=== PATIENT | male | born 1950 | race Caucasian/White ===

== ENCOUNTER 2017-06-28 02:05 | Emergency (ER) | payer OTHER, SELFPAY ==
--- NOTE | 2017-06-28 02:14 | EDM.PDOC ---
ED HPI GENERAL MEDICAL PROBLEM - General Chief Complaint: Chest Pain Stated Complaint: [facility] Time Seen by Provider: 06/28/17 02:07 Source of Information: Reports: Patient, EMS Notes Reviewed History Limitations: Reports: No Limitations - History of Present Illness INITIAL COMMENTS - FREE TEXT/NARRATIVE: 77-year-old male presents the ED by ambulance. He reports that about 11:00 last evening he developed central chest pain that is stayed constant for the last 2-1 /2 hours. He has a known history of coronary disease and does not doctor. He believes he had 2 stents placed about 5 years ago at [facility] in [place] in about 10 years ago had one stent placed for myocardial infarctions. He is still a smoker a pack per day. No angina by history. He had not yet gone to bed. States the pain is bad enough that it made him break out in a sweat. Paramedics administered nitroglycerin spray 2 as well as morphine 2 mg IV 2 which did bring the pain down from a 9 to a 5. 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 Pain does not radiate through to his back into his neck or shoulders or arms. Not currently taking any medications. Onset: Sudden Onset Date: 06/27/17 Onset Time: 23:00 Duration: Hour(s): Location: Reports: Chest Quality: Reports: Pressure, Other (Heaviness) Severity: Severe (Initially pain was 9 out of 10 associated with diaphoresis.) Improves with: Reports: Medication (Some improvement with morphine and nitroglycerin sprays.) Worsens with: Reports: None Context: Reports: Other (Name came on abruptly well seated.). Denies: Activity , Exercise, Lifting, Sick Contact, Trauma Associated Symptoms: Reports: Chest Pain, Cough (History of present illness), cough w sputum ( has a smoker's cough.), Shortness of Breath (Associated with the chest pain). 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 Denies: Fever, Chills, Malaise, Weakness, Fatigue, Decreased Appetite, Weight Loss HEENT: Reports: Glasses Respiratory: Reports: Shortness of Breath, Cough, Sputum (Smoker's cough. of brownish sputum production). Denies: Wheezing, Pleuritic Chest Pain (On exertion) Cardiovascular: Reports: Chest Pain, Blood Pressure Problem, Dyspnea on Exertion. Denies: Claudication (See history of present illness), Edema, Lightheadedness, Orthopnea Endocrine: Reports: No Symptoms GI/Abdominal: Reports: Other (Gets GERD periodically.). Denies: Anorexia, Constipation, Diarrhea, Decreased Appetite : Reports: Frequency, Other (Nocturia usually 3) Musculoskeletal: Reports: Back Pain, Joint Pain (Knees and hips shoulders at times.) Neurological: Reports: No Symptoms Psychiatric: Reports: No Symptoms Hematologic/Lymphatic: Reports: No Symptoms Immunologic: Reports: No Symptoms ED EXAM, GENERAL - Physical Exam Exam: See Below Exam Limited By: No Limitations General Appearance: Alert, WD/WN, Mild Distress, Other (Is quite cool and clammy.) Eye Exam: Bilateral Eye: Normal Inspection Throat/Mouth: Other Head: Atraumatic (Or pharyngeal erythema from cigarette smoking.), Normocephalic Neck: Normal Inspection, Supple, Non-Tender, Full Range of Motion. No: Carotid Bruit, Lymphadenopathy (L), Lymphadenopathy (R) Respiratory/Chest: No Respiratory Distress, Lungs Clear, Normal Breath Sounds, No Accessory Muscle Use, Chest Non-Tender Cardiovascular: Normal Peripheral Pulses, Regular Rate, Rhythm, No Edema, No Gallop, No Murmur Peripheral Pulses: 1+: Posterior Tibial (L), Posterior Tibial (R), Dorsalis Pedis (L), Dorsalis Pedis (R) GI/Abdominal: Normal Bowel Sounds, Soft, Non-Tender, No Organomegaly, Distended (Distention limits ability to palpate solid organs.) Back Exam: Normal Inspection, Full Range of Motion. No: CVA Tenderness (L), CVA Tenderness (R) Extremities: Normal Inspection, Normal Range of Motion, Non-Tender, No Pedal Edema, Other Neurological: Alert (Evidence of ulcer 30 changes in his knees.), Oriented, CN II-XII Intact, Normal Cognition Psychiatric: Normal Affect, Normal Mood Skin Exam: Warm, Dry, Intact, Normal Color, No Rash, Cool EKG INTERPRETATION EKG Date: 06/28/17 Time: 14:05 Rhythm: NSR Rate (Beats/Min): 76 [place]: LAD-Left [place] Deviation (-58.) P-Wave: Present QRS: Other (There is Q waves in leads 3 and aVF compatible with an old inferior wall myocardial infarction. Nonspecific intraventricular conduction delay evident.) ST-T: Depressed (There is mild ST segment depression V2 to be 4. There is a repolarization abnormality.) QT: Prolonged (Moderately prolonged) EKG Interpretation Comments: Disagree with computer interpretation. There is no atrial fibrillation into sinus rhythm and there is no evidence of an acute myocardial infarction in the inferior wall Course - Vital Signs Last Recorded V/S: Last Vital Signs Temp 35.4 C 06/28/17 02:07 Pulse 72 06/28/17 04:54 Resp 15 06/28/17 04:54 BP 121/92 H 06/28/17 04:54 Pulse Ox 93 L 06/28/17 04:54 - Orders/Labs/Meds Orders: Active Orders 24 hr Category Date Time Status EKG Documentation Completion [RC] STAT Care 06/28/17 02:09 Active EKG Documentation Completion [RC] STAT Care 06/28/17 05:36 Ordered Oxygen Therapy [RC] ASDIRECTED Care 06/28/17 02:09 Active Chest 1V Frontal [CR] Stat Exams 06/28/17 02:08 Taken Chest Abdomen Pelvis w Cont [CT] Stat Exams 06/28/17 03:09 Taken CBC W/O DIFF,HEMOGRAM [HEME] MOTH@0700 Lab 06/29/17 07:00 Ordered CBC W/O DIFF,HEMOGRAM [HEME] MOTH@0700 Lab 07/02/17 07:00 Ordered CBC W/O DIFF,HEMOGRAM [HEME] MOTH@0700 Lab 07/06/17 07:00 Ordered CBC W/O DIFF,HEMOGRAM [HEME] MOTH@0700 Lab 07/09/17 07:00 Ordered CBC W/O DIFF,HEMOGRAM [HEME] MOTH@0700 Lab 07/13/17 07:00 Ordered CBC W/O DIFF,HEMOGRAM [HEME] MOTH@0700 Lab 07/16/17 07:00 Ordered PTT,PARTIAL THROMBOPLSTIN TIME [COAG] Stat Lab 06/28/17 05:34 Ordered Clopidogrel [Plavix] Med 06/28/17 05:41 Once 300 mg PO ONETIME ONE Heparin Sodium/D5W [Heparin 25,000 Units in D5W 500 ML] Med 06/28/17 05:45 Ordered 25,000 units in 500 ml IV TITRATE Nitroglycerin/D5W [Nitroglycerin 25 MG/D5W 250 ML] Med 06/28/17 02:15 Active 25 mg in 250 ml IV ASDIRECTED Sodium Chloride 0.9% [Normal Saline] 1,000 ml Med 06/28/17 02:15 Active IV ASDIRECTED Medication Orders Nitroglycerin/Dextrose (Nitroglycerin 25 Mg/D5w 250 Ml) 25 mg in 250 mls @ 6 mls/hr IV ASDIRECTED ALICE PRN Reason: 10 MCG/MIN Last Admin: 06/28/17 02:24 Dose: 10 mcg/min, 6 mls/hr Sodium Chloride (Normal Saline) 1,000 mls @ 500 mls/hr IV ASDIRECTED ALICE Last Admin: 06/28/17 02:25 Dose: 125 mls/hr Heparin Sodium/Dextrose (Heparin 25,000 Units In D5w 500 Ml) 25,000 units in 500 mls @ 20 mls/hr IV TITRATE ALICE PRN Reason: 1,000 UNITS/HR Labs: Laboratory Tests 06/28/17 06/28/17 06/28/17 Range/Units 02:13 02:13 02:13 WBC 9.40 H (4.23-9.07) K/mm3 RBC 5.44 (4.63-6.08) M/mm3 Hgb 16.0 (13.7-17.5) gm/L Hct 48.3 (40.1-51.0) % MCV 88.8 (79.0-92.2) fl MCH 29.4 (25.7-32.2) pg MCHC 33.1 (32.2-35.5) g/dl RDW Std Deviation 49.5 H (35.1-43.9) fL Plt Count 185 (163-337) K/mm3 MPV 10.9 (9.4-12.3) fl Neutrophils % (Manual) 61 H (40-60) % Band Neutrophils % 0 (0-10) % Lymphocytes % (Manual) 17 L (20-40) % Atypical Lymphs % 10 % Monocytes % (Manual) 8 (2-10) % Eosinophils % (Manual) 2 (0.8-7.0) % Basophils % (Manual) 2 H (0.2-1.2) Platelet Estimate Adequate Plt Morphology Comment Normal RBC Morph Comment Normal PT 9.8 (8.0-13.0) SECONDS INR 0.92 D-Dimer, Quantitative (0.19-0.59) mg/L Sodium 142 (136-145) mEq/L Potassium 4.1 (3.5-5.1) mEq/L Chloride 104 (98-107) mEq/L Carbon Dioxide 23 (21-32) mEq/L Anion Gap 19.1 H (5-15) BUN 17 (7-18) mg/dL Creatinine 1.2 (0.7-1.3) mg/dL Est Cr Clr Drug Dosing 65.56 mL/min Estimated GFR (MDRD) > 60 (>60) mL/min BUN/Creatinine Ratio 14.2 (14-18) Glucose 151 H (80-115) mg/dL Calcium 8.7 (8.5-10.1) mg/dL Magnesium 1.9 (1.8-2.4) mg/dl Total Bilirubin 0.2 (0.2-1.0) mg/dL AST 19 (15-37) U/L ALT 25 (16-63) U/L Alkaline Phosphatase 79 (46-116) U/L CK-MB (CK-2) 2.9 (0-3.6) ng/ml Troponin I < 0.017 (0.00-0.056) ng/mL C-Reactive Protein < 0.2 (<1.0) mg/dL NT-Pro-B Natriuret Pep (0-125) pg/mL Total Protein 7.5 (6.4-8.2) g/dl Albumin 3.5 (3.4-5.0) g/dl Globulin 4.0 gm/dL Albumin/Globulin Ratio 0.9 L (1-2) Lipase (73-393) U/L Ethyl Alcohol (0.00) gm% 06/28/17 06/28/17 06/28/17 Range/Units 02:13 02:13 04:30 WBC (4.23-9.07) K/mm3 RBC (4.63-6.08) M/mm3 Hgb (13.7-17.5) gm/L Hct (40.1-51.0) % MCV (79.0-92.2) fl MCH (25.7-32.2) pg MCHC (32.2-35.5) g/dl RDW Std Deviation (35.1-43.9) fL Plt Count (163-337) K/mm3 MPV (9.4-12.3) fl Neutrophils % (Manual) (40-60) % Band Neutrophils % (0-10) % Lymphocytes % (Manual) (20-40) % Atypical Lymphs % % Monocytes % (Manual) (2-10) % Eosinophils % (Manual) (0.8-7.0) % Basophils % (Manual) (0.2-1.2) Platelet Estimate Plt Morphology Comment RBC Morph Comment PT (8.0-13.0) SECONDS INR D-Dimer, Quantitative 0.55 (0.19-0.59) mg/L Sodium (136-145) mEq/L Potassium (3.5-5.1) mEq/L Chloride (98-107) mEq/L Carbon Dioxide (21-32) mEq/L Anion Gap (5-15) BUN (7-18) mg/dL Creatinine (0.7-1.3) mg/dL Est Cr Clr Drug Dosing mL/min Estimated GFR (MDRD) (>60) mL/min BUN/Creatinine Ratio (14-18) Glucose (80-115) mg/dL Calcium (8.5-10.1) mg/dL Magnesium (1.8-2.4) mg/dl Total Bilirubin (0.2-1.0) mg/dL AST (15-37) U/L ALT (16-63) U/L Alkaline Phosphatase (46-116) U/L CK-MB (CK-2) 8.5 H (0-3.6) ng/ml Troponin I 0.067 H* (0.00-0.056) ng/mL C-Reactive Protein (<1.0) mg/dL NT-Pro-B Natriuret Pep 204 H (0-125) pg/mL Total Protein (6.4-8.2) g/dl Albumin (3.4-5.0) g/dl Globulin gm/dL Albumin/Globulin Ratio (1-2) Lipase (73-393) U/L Ethyl Alcohol (0.00) gm% 06/28/ Range/Units 04:30 WBC (4.23-9.07) K/mm3 RBC (4.63-6.08) M/mm3 Hgb (13.7-17.5) gm/L Hct (40.1-51.0) % MCV (79.0-92.2) fl MCH (25.7-32.2) pg MCHC (32.2-35.5) g/dl RDW Std Deviation (35.1-43.9) fL Plt Count (163-337) K/mm3 MPV (9.4-12.3) fl Neutrophils % (Manual) (40-60) % Band Neutrophils % (0-10) % Lymphocytes % (Manual) (20-40) % Atypical Lymphs % % Monocytes % (Manual) (2-10) % Eosinophils % (Manual) (0.8-7.0) % Basophils % (Manual) (0.2-1.2) Platelet Estimate Plt Morphology Comment RBC Morph Comment PT (8.0-13.0) SECONDS INR D-Dimer, Quantitative (0.19-0.59) mg/L Sodium (136-145) mEq/L Potassium (3.5-5.1) mEq/L Chloride (98-107) mEq/L Carbon Dioxide (21-32) mEq/L Anion Gap (5-15) BUN (7-18) mg/dL Creatinine (0.7-1.3) mg/dL Est Cr Clr Drug Dosing mL/min Estimated GFR (MDRD) (>60) mL/min BUN/Creatinine Ratio (14-18) Glucose (80-115) mg/dL Calcium (8.5-10.1) mg/dL Magnesium (1.8-2.4) mg/dl Total Bilirubin (0.2-1.0) mg/dL AST (15-37) U/L ALT (16-63) U/L Alkaline Phosphatase (46-116) U/L CK-MB (CK-2) (0-3.6) ng/ml Troponin I (0.00-0.056) ng/mL C-Reactive Protein (<1.0) mg/dL NT-Pro-B Natriuret Pep (0-125) pg/mL Total Protein (6.4-8.2) g/dl Albumin (3.4-5.0) g/dl Globulin gm/dL Albumin/Globulin Ratio (1-2) Lipase 184 (73-393) U/L Ethyl Alcohol 0.00 (0.00) gm% Meds: Medications Generic Name Dose Route Start Last Admin Trade Name Freq PRN Reason Stop Dose Admin Nitroglycerin/Dextrose 25 mg in 250 mls @ 6 mls/hr 06/28/17 02:15 06/28/17 02 :24 Nitroglycerin 25 Mg/D5w 250 Ml IV 10 mcg/min ASDIRECTED ALICE 6 mls/hr 10 MCG/MIN Administration Sodium Chloride 1,000 mls @ 500 mls/hr 06/28/17 02:15 06/28/17 02:25 Normal Saline IV 125 mls/hr ASDIRECTED ALICE Administration Heparin Sodium/Dextrose 25,000 units in 500 mls @ 20 mls/hr 06/28/17 05:45 Heparin 25,000 Units In D5w 500 Ml IV TITRATE ALICE 1,000 UNITS/HR Discontinued Medications Generic Name Dose Route Start Last Admin Trade Name Freq PRN Reason Stop Dose Admin Heparin Sodium (Porcine) 5,000 units 06/28/17 05:33 Heparin Sodium IVPUSH 06/28/17 05:34 ONETIME ONE Hydromorphone HCl 1 mg 06/28/17 03:11 06/28/17 04:48 Dilaudid IVPUSH 06/28/17 03:12 Not Given ONETIME ONE Hydromorphone HCl 1 mg 06/28/17 03:14 06/28/17 03:37 Dilaudid IVPUSH 06/28/17 03:15 1 mg ONETIME ONE Administration Iopamidol 100 ml 06/28/17 03:46 06/28/17 03:46 Isovue-370 (76%) IVPUSH 06/28/17 03:47 100 ml ONETIME ONE Administration Lorazepam 1 mg 06/28/17 03:10 06/28/17 03:40 Ativan IVPUSH 06/28/17 03:11 1 mg ONETIME ONE Administration Metoclopramide HCl 10 mg 06/28/17 02:39 06/28/17 02:47 Reglan IVPUSH 06/28/17 02:40 10 mg ONETIME ONE Administration - Radiology Interpretation Free Text/Narrative:: 67-year-old male presents to the ED with central chest heaviness squeezing pressure discomfort starting about 2300 hrs. last evening. It is not relieved by burping or belching. He has no trouble swallowing. Last ate a diabetes donut about 2000 hrs. He does have a history of gastroesophageal reflux disease. He has an extensive history of coronary disease having had stents placed 10 years ago and 2 stents placed 5 years ago without proper follow-up with cardiology. Continues to smoke cigarettes and has elevated cholesterol. He is currently on no medications. His chest pain certainly suggests a cardiac etiology. He will be treated as such with nitroglycerin drip at 10 mcg/m. Patient took 06/06/24 milligram aspirins at home prior to paramedics picking him up. Paramedics have given him 2 nitroglycerin spray doses without much effect and morphine 2 mg IV 2 doses with perhaps minimal effect. Patient reports pain went from a 9 to a 7. Plan chest x-ray ECG lab work to include cardiac markers d-dimer etc. - Re-Assessments/Exams Free Text/Narrative Re-Assessment/Exam: 06/28/17 02:40 Patient started vomiting. Emesis is all bilious without blood. It may be from the morphine that the paramedics have given him. We'll give Reglan 10 mg IV. 06/28/17 03:04 Labs are now back. White count is 9.40 with 61% neutrophils no bands. Hemoglobin is 16.0 with hematocrit of 48.3. Platelet count is 185,000. PT is 9.8 with an INR of 0.92. D-dimer is 0.55 upper limits of normal. BUN is 17 with a creatinine of 1.2. Glucose is 151. Calcium is 8.7. Magnesium 1.9. Liver function normal. Troponin I is less than 0.017. C-reactive protein is less than 0.2. BNP is slightly elevated at 204. Chest x-ray reveals moderate cardiomegaly. There is slight diffuse vascular congestion. No pleural effusions no pneumothorax. 06/28/17 03:11 patient is continued to have severe pain dry heaving in spite of Reglan. Appears to be in severe pain. Therefore CT chest abdomen pelvis will be done in angiogram fashion to look for dissection of aorta. He reports pain is minimally improved on the nitroglycerin drip. ECG shows mild ST segment depression in V2 V3 and perhaps V4 but there is a early repolarization pattern. There are Q waves in 3 and aVF with no ST segment changes to suggest acute inferior wall infarction these appears to be an old inferior wall MO. There is suspect left atrial enlargement. Continues to have a prolonged QT interval and a left axis deviation of -52. I'm going to give him Dilaudid 1 mg IV for pain relief and Ativan 1 mg IV for anxiety as well. Hoping this will help promote still 4 CT angiogram of chest abdomen and pelvis. 06/28/17 04:00 CT of the chest abdomen and pelvis with IV contrast does not reveal any sign of aortic dissection. He has extensive atherosclerosis of the aorta in particular near complete occlusion at the bifurcation in the abdomen. This leads to very poor blood flow into the left common iliac artery and the left external iliac artery that are occluded which appears chronic. He has mild pulmonary fibrosis and moderate emphysematous changes on CT of the lungs. No evidence of any pulmonary emboli identified. CT of the abdomen does not reveal any gallstones the liver appears healthy spleen appears healthy pancreas appears healthy. Stomach and bowel showed no mucosal thickening or obvious obstruction there was no findings to suggest appendicitis. He has been able to rest now since the Dilaudid and Ativan were administered. He will will be for repeat cardiac enzymes at 0420 hrs. 06/28/17 05:42 the cardiac markers done for the second time are now entering the positive range. CK-MB fraction is now 8.5 and troponin is 0.067 just above normal range. He remains chest pain-free at this time repeat ECG #3 reveals an improvement in terms of ST segment depression V2 V3 and V4 as compared to the original 2 ECGs. He appears to have suffered a non-STEMI. He will require cardiology evaluation. He will be given Plavix 300 mg by mouth. He will be heparinized at this time with 5000 unit IV bolus and then 1000 units per hour. He has had previous cardiac workups carried out at [facility] and therefore he prefers to return to that institution for care. I will contact clinical coordinator at this time 06/28/17 06:07 I spoken with hospitalist at [facility] in [place] Dr. Darby is going off call and Dr. Earl will be coming on duty shortly. Patient will be transported to that facility per ground ambulance. He remains chest pain-free. Vital signs at the time of discharge revealed a heart rate of 65/m. BP is 129/94. Sats are 95% on 3 L/min. Departure - Departure Time of Disposition: 06:10 Disposition: DC/Tfer to Acute Hospital 02 Reason for Transfer *Q: Other Condition: Fair Clinical Impression: Acute myocardial infarction Qualifiers: Myocardial infarction type: non-ST elevation myocardial infarction Qualified Code(s): I21.4 - Non-ST elevation (NSTEMI) myocardial infarction Forms: ED Department Discharge Additional Instructions: Transported to [facility] where he has received previous cardiology treatment and stent placement. - My Orders Last 24 Hours: My Active Orders 06/28/17 02:08 Chest 1V Frontal [CR] Stat 06/28/17 02:09 EKG Documentation Completion [RC] STAT Oxygen Therapy [RC] ASDIRECTED 06/28/17 02:15 Nitroglycerin/D5W [Nitroglycerin 25 MG/D5W 250 ML] 25 mg in 250 ml IV ASDIRECTED Sodium Chloride 0.9% [Normal Saline] 1,000 ml IV ASDIRECTED 06/28/17 03:09 Chest Abdomen Pelvis w Cont [CT] Stat 06/28/17 05:34 PTT,PARTIAL THROMBOPLSTIN TIME [COAG] Stat 06/28/17 05:36 EKG Documentation Completion [RC] STAT 06/28/17 05:41 Clopidogrel [Plavix] 300 mg PO ONETIME ONE 06/28/17 05:45 Heparin Sodium/D5W [Heparin 25,000 Units in D5W 500 ML] 25,000 units in 500 ml IV TITRATE 06/29/17 07:00 CBC W/O DIFF,HEMOGRAM [HEME] MOTH@0707/02/17 07:00 CBC W/O DIFF,HEMOGRAM [HEME] MOTH@69907/06/17 07:00 CBC W/O DIFF,HEMOGRAM [HEME] MOTH@69907/09/17 07:00 CBC W/O DIFF,HEMOGRAM [HEME] MOTH@69907/13/17 07:00 CBC W/O DIFF,HEMOGRAM [HEME] MOTH@0707/16/17 07:00 CBC W/O DIFF,HEMOGRAM [HEME] MOTH@0700 - Assessment/Plan Last 24 Hours: My Active Orders 06/28/17 02:08 Chest 1V Frontal [CR] Stat 06/28/17 02:09 EKG Documentation Completion [RC] STAT Oxygen Therapy [RC] ASDIRECTED 06/28/17 02:15 Nitroglycerin/D5W [Nitroglycerin 25 MG/D5W 250 ML] 25 mg in 250 ml IV ASDIRECTED Sodium Chloride 0.9% [Normal Saline] 1,000 ml IV ASDIRECTED 06/28/17 03:09 Chest Abdomen Pelvis w Cont [CT] Stat 06/28/17 05:34 PTT,PARTIAL THROMBOPLSTIN TIME [COAG] Stat 06/28/17 05:36 EKG Documentation Completion [RC] STAT 06/28/17 05:41 Clopidogrel [Plavix] 300 mg PO ONETIME ONE 06/28/17 05:45 Heparin Sodium/D5W [Heparin 25,000 Units in D5W 500 ML] 25,000 units in 500 ml IV TITRATE 06/29/17 07:00 CBC W/O DIFF,HEMOGRAM [HEME] MOTH@0700 07/02/17 07:00 CBC W/O DIFF,HEMOGRAM [HEME] MOTH@0707/06/17 07:00 CBC W/O DIFF,HEMOGRAM [HEME] MOTH@69907/09/17 07:00 CBC W/O DIFF,HEMOGRAM [HEME] MOTH@69907/13/17 07:00 CBC W/O DIFF,HEMOGRAM [HEME] MOTH@69907/16/17 07:00 CBC W/O DIFF,HEMOGRAM [HEME] MOTH@699
[2017-06-28] MEDS ORDERED: Nitroglycerin/D5W 25 MG/250 ML BOTTLE IV SCH (02:15)
[2017-06-28] MEDS ORDERED: Sodium Chloride 0.9% 1,000 ML IV SCH (02:15)
[2017-06-28] MEDS ORDERED: Metoclopramide 10 MG/2 ML SDV IVPUSH ONE (02:39)
[2017-06-28] MEDS ORDERED: LORazepam 2 MG/ML SDV IVPUSH ONE (03:10)
[2017-06-28] MEDS ORDERED: HYDROmorphone 1 MG/ML Syringe IVPUSH ONE (03:11)
[2017-06-28] MEDS ORDERED: Iopamidol 612 MG/ML 100 ML Bottle IVPUSH ONE (03:12)
[2017-06-28] MEDS ORDERED: HYDROmorphone 0.5 MG/0.5 ML SYRINGE IVPUSH ONE (03:14)
[2017-06-28] MEDS ORDERED: Iopamidol 755 Mg/ML 100 ML Bottle IVPUSH ONE (03:46)
[2017-06-28] MEDS ORDERED: Heparin Sodium 5,000 Units/ML Vial IVPUSH ONE (05:33)
[2017-06-28] MEDS ORDERED: Clopidogrel 75 MG Tab PO ONE (05:41)
[2017-06-28] MEDS ORDERED: Heparin Sodium/D5W 25,000 UNITS/500 ML BAG IV SCH (05:45)
--- NOTE | 2017-06-28 11:53 | CT ---
CT chest Technique: Multiple axial sections were obtained from above the lung apices inferiorly through the lung bases. Intravenous contrast was utilized. Findings: Aorta shows no evidence of aneurysm or dissection. Scattered lymph nodes are seen within the mediastinum which are felt to be within normal limits. Largest lymph node measures 2.2 cm. Atherosclerotic change is noted within the coronary arteries and thoracic aorta. No pericardial thickening is seen. Emphysematous change is identified which is most prominent within both upper lungs. Slight scarring and probable bibasilar atelectasis is present. Bone window settings were reviewed which show minimal degenerative change within the spine. No discrete rib abnormality is appreciated. Impression: 1. Emphysematous changes and other incidental findings as noted above. Nothing acute is appreciated on CT study of the chest. Diagnostic code #3 Agree with preliminary report issued by [employer] ([email or web address] preliminary report dictated on 06/28/17, 4:49 AM Central Time) CT abdomen and pelvis Technique: Multiple axial sections were obtained from above the dome of the diaphragm inferiorly to the level of the hips. Intravenous contrast was utilized. Findings: Diffuse atherosclerotic change is noted within the aorta without aneurysm or dissection. Occlusion is identified within the left common iliac artery and left external iliac artery most likely chronic. Atherosclerotic calcification is seen within the left renal artery. Renal arteries showed no discrete stenosis. Celiac axis and superior mesenteric arteries are opacified and appear within normal limits. Liver shows no focal abnormality. Spleen appears within normal limits. Adrenal glands show no nodule. Kidneys show symmetric contrast enhancement without hydronephrosis or mass. Pancreas appears within normal limits. Gallbladder contains no calcified gallstones. No retroperitoneal adenopathy or mesenteric abnormalities are seen. No free fluid or inflammatory change is seen. Impression: 1. 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 This may be chronic. 2. Atherosclerotic change as noted above. No aortic aneurysm or dissection is seen. 3. Nothing acute is appreciated. Diagnostic code #3 Agree with preliminary report issued by [employer] ([email or web address] preliminary report dictated on 06/28/17, 4:49 AM Central Time)
--- NOTE | 2017-06-28 11:53 | CR ---
Chest: Portable view of the chest was obtained. Comparison: No prior chest x-ray. Heart size is accentuated from portable technique. Central pulmonary vessels are minimally increased. Lungs otherwise are clear. Bony structures are grossly intact. Impression: 1. Slight increased central lung markings most likely representing mild pulmonary vascular congestion. This may be chronic. 2. Nothing acute is otherwise seen. Diagnostic code #3
== END 2017-06-28 06:19 ==
LOC: JD.ED 02:05
DX: I21.4 Non-ST elevation (NSTEMI) myocardial infarction (principal); I10 Essential (primary) hypertension; I25.10 Atherosclerotic heart disease of native coronary artery without angina pectoris; E78.00 Pure hypercholesterolemia, unspecified; J44.9 Chronic obstructive pulmonary disease, unspecified; F17.210 Nicotine dependence, cigarettes, uncomplicated; Z79.82 Long term (current) use of aspirin; Z95.5 Presence of coronary angioplasty implant and graft
CPT/HCPCS: 36415; 71045; 71260; 74177; 80053; 82553; 83690; 83735; 83880; 84484; 85025; 85379; 85610; 85730; 86140; 93005; 96365; 96366; 96368; 96375; 99285; A9270; G0480; J1170; J1644; J2060; J2765; J7040; Q9967; 93010

== ENCOUNTER 2019-07-07 13:00 | Emergency (ER) | payer MEDICARE, OTHER, MEDICAID ==
--- NOTE | 2019-07-07 13:22 | EDM.PDOC ---
ED HPI GENERAL MEDICAL PROBLEM - General Chief Complaint: CPR in Progress Stated Complaint: [facility] Time Seen by Provider: 07/07/19 13:00 Source of Information: Reports: EMS History Limitations: Reports: Physical Impairment - History of Present Illness INITIAL COMMENTS - FREE TEXT/NARRATIVE: According to the patient's , she and the patient went out to a storage unit to recover a carpet. When he walked around their vehicle he told her "I don't feel good", then sat down on the ground. His asked him if he was feeling all right, and he responded "No, no". She then went to call EMS, at which time the patient fell over. She was unable to get him onto his back. The police arrived first, after about 5 minutes, and began CPR, followed by the fire department. The fire department placed an AED, and he received 2 electrical defibrillations prior to the arrival of EMS. When EMS arrived, they found the patient to be in ventricular fibrillation. An IV was placed, and the patient was given a total of 6 rounds of epinephrine, and an additional 5 electrical defibrillations, but he remained in V-fib. He was given amiodarone 300 mg + 150 mg prior to arrival. EMS was unable to establish an airway. Upon arrival to the ED, chest compressions were continued while monitor leads were attached. I intubated the patient with an 8.0 OETT to 24 cm at the lip ( the patient is edentulous) using a Mac 3 blade. A strong left femoral pulse was palpable with chest compressions, but a right femoral pulse was not. The patient then received 3 additional rounds of epinephrine and 3 additional electrical defibrillations, however, at each pulse check, the patient was in V- fib with no palpable pulse. By 13:05, the patient had been receiving CPR for approximately 45 minutes total, and future efforts were deemed futile. CPR was stopped. The patient had no palpable pulse, and no heart tones on auscultation. No spontaneous respiratory effort. No response to noxious stimuli. The patient was pronounced at 13:05. Patient's PCP is CHELLE Rinaldi. His Clinical Trial Associate is Dr. Shantanu Olvera. - Related Data Allergies Allergy/AdvReac Type Severity Reaction Status Date / Time No Known Allergies Allergy Verified 06/28/17 02:11 Home Meds: Home Meds Aspirin [Ecotrin] 325 mg PO DAILY PRN 06/28/17 [History] Past Medical History Cardiovascular History: Reports: CAD, High Cholesterol, Hypertension, NM (x 4) Respiratory History: Reports: COPD Gastrointestinal History: Reports: GERD (Has frequent heartburn.), PUD Genitourinary History: Reports: BPH Neurological History: Reports: CVA (x 2) - Past Surgical History Cardiovascular Surgical History: Reports: Coronary Artery Stent (x 3), Other ( See Below) (Coronary angiogram x 2) GI Surgical History: Reports: Appendectomy Social & Family History - Family History Family Medical History: Noncontributory - Living Situation & Occupation Living situation: Reports: Occupation: Employed ED ROS GENERAL - Review of Systems Review Of Systems: Unable To Obtain Reason Not Obtained: patient condition ED EXAM, CPR - Physical Exam Exam: See Below Reason Not Obtained: See HPI ED CPR PROCEDURES - Endotracheal Intubation Time of Intubation: 12:58 ET Intubation Indication: Cardiac Arrest Preparation: Suction, Balloon Tested, BVM Set Up, Difficult Airway Equip Airway Assessment: Other (Edentulous) Pre-Oxygenation: Assisted with BVM, 100% FiO2 Placement: Orotracheal, Cuffed, Complicated Placement (during chest compressions ) Cords Visualized: Yes, Grade 3 ETT Size In mm: 8.0 Number of Attempts: 1 Confirmed By: CO2 Indicator, Bilateral Breath Sounds Tube Secured By: By RT Course - Re-Assessments/Exams Free Text/Narrative Re-Assessment/Exam: 07/07/19 13:[address] Hicks, roentgenology teacher, at 13:07. He feels that the patient likely suffered an acute NM. The body is released to the home. He would like us to send a copy of the patient's facesheet plus my notes to his office at the clinic. Departure - Departure Time of Disposition: 13:15 Disposition: 20 Clinical Impression: Cardiopulmonary arrest Acute NM Qualifiers: Myocardial infarction type: non-ST elevation myocardial infarction Qualified Code(s): I21.4 - Non-ST elevation (NSTEMI) myocardial infarction - Discharge Information *PRESCRIPTION DRUG MONITORING PROGRAM REVIEWED*: Not Applicable *COPY OF PRESCRIPTION DRUG MONITORING REPORT IN PATIENT ROSEANNA: Not Applicable Referrals: Kim Jang PA-C [Physician Immigration Guard] - Shantanu Noble MD [Ordering Only Provider] - Forms: ED Department Discharge Sepsis Event Note - Focused Exam Date Exam was Performed: 07/07/19 Time Exam was Performed: 18:55
[2019-07-07] MEDS ORDERED: Sodium Bicarbonate 8.4% 50 MEQ/50 ML Syringe ONE (14:15)
[2019-07-07] MEDS ORDERED: EPINEPHrine 1:10,000 1 MG/10 ML Syringe ONE (14:15)
== END 2019-07-07 17:41 | disposition expired ==
LOC: JD.ED 13:00
DX: I46.9 Cardiac arrest, cause unspecified (principal); I21.4 Non-ST elevation (NSTEMI) myocardial infarction; I10 Essential (primary) hypertension; I25.2 Old myocardial infarction; Z90.49 Acquired absence of other specified parts of digestive tract; Z79.82 Long term (current) use of aspirin
CPT/HCPCS: 31500; 92950; 99285; J0171; 93010; 99283